=== PATIENT | female | born 1990 | race Caucasian/White ===

== ENCOUNTER 2017-11-11 22:28 | Emergency (ER) | payer OTHER ==
[~2017-11-11] VITALS: Ht 175.3 cm; Wt 140.0 kg
[2017-11-11 22:44] VITALS: BP 185/90; PULSE 97; RESP 18; TEMP 99.2; O2SAT 99
[2017-11-12] MEDS ORDERED: ONDANSETRON HCL 4 MG/2 ML VIAL ONE (00:24)
[2017-11-12 00:29] LABS: AUTOMATED NEUTROPHIL # 5.1 TH/MM3 (1.8-7.7); BASOPHIL # 0.1 TH/MM3 (0-0.2); BASOPHIL % 0.6 % (0.0-2.0); EOSINOPHIL # 0.1 TH/MM3 (0-0.4); EOSINOPHIL % 1.2 % (0.0-4.0); HEMATOCRIT 40.7 % (35.0-46.0); HEMOGLOBIN 13.8 GM/DL (11.6-15.3); LYMPH % 33.5 % (9.0-44.0); MEAN CELL VOLUME 87.6 FL (80.0-100.0); MEAN CORPUSCULAR HEMOGLOBIN 29.6 PG (27.0-34.0); MEAN CORPUSCULAR HGB CONC 33.8 % (32.0-36.0); MEAN PLATELET VOLUME 7.1 FL (7.0-11.0); MONO % 7.9 % (0.0-8.0); MONOCYTE # 0.7 TH/MM3 (0-0.9); NEUT % 56.8 % (16.0-70.0); PLATELET COUNT 309 TH/MM3 (150-450); RED BLOOD COUNT 4.64 MIL/MM3 (4.00-5.30); RED CELL DISTRIBUTION WIDTH 13.4 % (11.6-17.2)
[2017-11-12 00:43] LABS: ALBUMIN 3.8 GM/DL (3.4-5.0); ALT (GPT) 18 U/L (10-53); AST (GOT) 18 U/L (15-37); BICARBONATE 22.4 MEQ/L (21.0-32.0); BLOOD UREA NITROGEN 8 MG/DL (7-18); CHLORIDE 107 MEQ/L (98-107); CREATININE 0.84 MG/DL (0.50-1.00); GLOMERULAR FILTRATION RATE 82 ML/MIN (>89); GLUCOSE,RANDOM 79 MG/DL (74-106); SODIUM (NA) 141 MEQ/L (136-145)
[2017-11-12 00:46] LABS: ALKALINE PHOSPHATASE 98 U/L (45-117); TOTAL BILIRUBIN ADULT 0.8 MG/DL (0.2-1.0); TOTAL PROTEIN 7.6 GM/DL (6.4-8.2)
[2017-11-12] MEDS ORDERED: MORPHINE SULFATE 2 MG/ML SYRINGE IV PUSH ONE (01:00)
[2017-11-12] MEDS ORDERED: ONDANSETRON HCL 4 MG/2 ML VIAL IV PUSH ONE (02:15)
[2017-11-12] MEDS ORDERED: IOHEXOL 350 MG/ML 10 ML VIAL (for RAD DIAG) IVCONTRAST ONE (02:33)
[2017-11-12] MEDS ORDERED: METOCLOPRAMIDE HCL 10 MG/2 ML VIAL IV PUSH ONE (03:15)
--- NOTE | 2017-11-12 03:31 | RADRPT ---
EXAM DATE/TIME: 11/12/2017 02:28 [place] COMPARISON: No previous studies available for comparison. INDICATIONS : Abdominal pain, no bowel movement for 1 week. IV CONTRAST: 100 cc Omnipaque 350 (iohexol) IV ORAL CONTRAST: No oral contrast ingested. RADIATION DOSE: 16.67 CTDIvol (mGy) MEDICAL HISTORY : Irritiable bowel syndrome. SURGICAL HISTORY : Cholecystectomy. ENCOUNTER: Initial ACUITY: 1 week PAIN SCALE: 8/10 LOCATION: Abdomen. TECHNIQUE: Volumetric scanning of the abdomen and pelvis was performed. Using automated exposure control and ad justment of the mA and/or kV according to patient size, radiation dose was kept as low as reasonably achievable to obtain optimal diagnostic quality images. DICOM format image data is available electro nically for review and comparison. FINDINGS: LOWER LUNGS: The visualized lower lungs are clear. LIVER: Homogeneous density without lesion. There is no dilation of the biliary tree. Status post cholecyste ctomy. SPLEEN: Normal size without lesion. PANCREAS: Within normal limits. KIDNEYS: Normal in size and shape. There is no mass, stone or hydronephrosis. ADRENAL GLANDS: Within normal limits. VASCULAR: There is no aortic aneurysm. BOWEL/MESENTERY: The stomach, small bowel, and colon demonstrate no acute abnormality. There is no free intraperitone al air or fluid. ABDOMINAL WALL: Within normal limits. RETROPERITONEUM: There is no lymphadenopathy. BLADDER: No wall thickening or mass. REPRODUCTIVE: Within normal limits. INGUINAL: There is no lymphadenopathy or hernia. MUSCULOSKELETAL: Within normal limits for patient age. CONCLUSION: No acute disease. Doyle Lisa MD on November 12, 2017 at 3:29 Board Certified Radiologist. This report was verified electronically.
[2017-11-12] MEDS ORDERED: SODIUM CHLOR 0.9% 1000 ML INJ 1,000 ML IV ONE (04:00)
[2017-11-12 04:12] LABS: BILIRUBIN, URINE NEG (NEG); BLOOD, URINE NEG (NEG); GLUCOSE,URINE NEG (NEG); KETONE, URINE 10 mg/dL (NEG); MUCUS URINE FEW /lpf (OCC); NITRITE,URINE NEG (NEG); SQUAMOUS EPITHELIAL CELL URINE 2 /hpf (0-5); URINE COLOR LIGHT-YELLOW (YELLW/STRAW); URINE LEUKOCYTE ESTERASE NEG (NEG)
--- NOTE | 2017-11-12 04:44 | PD ---
HPI Chief Complaint: Abdominal Pain Time Seen by Provider: 00:52 Travel History International Travel<30 days: No Contact w/Intl Traveler<30days: No Traveled to known affect area: No History of Present Illness HPI 27-year-old female presents to the emergency department by private transportation for complaint of 1 week of abdominal pain with constipation. Patient states she has had nausea without vomiting. No reported fever or chills. No report of bilious emesis hematemesis or coffee-ground emesis. No report of melena hematochezia. No report of urinary symptoms. Last period was 10/16/17 and denies . Patient has history of gastroparesis. Patient is status post cholecystectomy. Patient states that she was previously followed by mechanical artist but this is been greater than 6 months and recently saw her primary care provider with outpatient prescription for HIDA scan. Patient has not scheduled the procedure due to insurance not authorizing the procedure. Patient denies other concerns or complaints. The patient rates her pain 6/10 intensity. PFSH Past Medical History Narrative Medical Irritable bowel syndrome, gastroparesis, paradoxical vocal cord dysfunction, cholecystectomy; no tobacco use; nursing notes for Diminished Hearing: No Gastrointestinal Disorders: Yes (IBS) Medical other: Yes (parodoxacal voical cord disfuction) Tetanus Vaccination: Unknown Influenza Vaccination: Yes ?: Not LMP: 10/16/2017 Past Surgical History Cholecystectomy: Yes Social History Alcohol Use: No Tobacco Use: No Substance Use: No Allergies-Medications (Allergen,Severity, Reaction): Coded Allergies: ciprofloxacin (Verified Allergy, Severe, 11/11/17) neuological deficits levofloxacin (Verified Allergy, Severe, 11/11/17) NEUROLOGICAL DEFICITS Narrative Medication Bethanechol Review of Systems Except as stated in HPI: all other systems reviewed are Neg General / Constitutional: No: Fever, Chills HENT: No: Congestion Cardiovascular: No: Chest Pain or Discomfort Respiratory: No: Shortness of Breath Gastrointestinal: Positive: Nausea, Abdominal Pain, Constipation, No: Vomiting , Diarrhea Genitourinary: No: Dysuria, Flank Pain Musculoskeletal: No: Myalgias, Arthralgias Neurologic: No: Weakness Psychiatric: No: Anxiety Hematologic/Lymphatic: No: Lymph Node Enlargement Physical Exam Narrative GENERAL: Well-developed well-nourished female no acute distress no respiratory distress SKIN: Warm and dry. HEAD: Normocephalic. EYES: No scleral icterus. No injection or drainage. NECK: Supple, trachea midline. No JVD or lymphadenopathy. CARDIOVASCULAR: Regular rate and rhythm without murmurs, gallops, or rubs. RESPIRATORY: Breath sounds equal bilaterally. No accessory muscle use. GASTROINTESTINAL: Abdomen soft, mildly diffusely tender primarily in the epigastric region without guarding or rebound, nondistended. MUSCULOSKELETAL: No cyanosis, or edema. BACK: Nontender without obvious deformity. No CVA tenderness. Data Data Last Documented VS Vital Signs Date Time Temp Pulse Resp B/P (MAP) Pulse Ox O2 Delivery O2 Flow Rate FiO2 11/11/17 22:44 99.2 97 18 185/90 (121) 99 Orders Orders Complete Blood Count With Diff (11/12/17 00:06) Comprehensive Metabolic Panel (11/12/17 00:06) Lipase (11/12/17 00:06) Urinalysis - C+S If Indicated (11/12/17 00:06) Ed Urine Pregnancytest Poc (11/12/17 00:06) Ondansetron Inj (Zofran Inj) (11/12/17 00:24) Morphine Inj (Morphine Inj) (11/12/17 01:00) Ondansetron Inj (Zofran Inj) (11/12/17 02:15) Ct Abd/Pel W Iv Contrast(Rout) (11/12/17 ) Iohexol 350 Inj (Omnipaque 350 Inj) (11/12/17 02:33) Metoclopramide Inj (Reglan Inj) (11/12/17 03:15) Sodium Chlor 0.9% 1000 Ml Inj (Ns 1000 M (11/12/17 04:00) Labs Laboratory Tests Test 11/12/17 00:10 11/12/17 03:30 White Blood Count 9.0 TH/MM3 Red Blood Count 4.64 MIL/MM3 Hemoglobin 13.8 GM/DL Hematocrit 40.7 % Mean Corpuscular Volume 87.6 FL Mean Corpuscular Hemoglobin 29.6 PG Mean Corpuscular Hemoglobin Concent 33.8 % Red Cell Distribution Width 13.4 % Platelet Count 309 TH/MM3 Mean Platelet Volume 7.1 FL Neutrophils (%) (Auto) 56.8 % Lymphocytes (%) (Auto) 33.5 % Monocytes (%) (Auto) 7.9 % Eosinophils (%) (Auto) 1.2 % Basophils (%) (Auto) 0.6 % Neutrophils # (Auto) 5.1 TH/MM3 Lymphocytes # (Auto) 3.0 TH/MM3 Monocytes # (Auto) 0.7 TH/MM3 Eosinophils # (Auto) 0.1 TH/MM3 Basophils # (Auto) 0.1 TH/MM3 CBC Comment DIFF FINAL Differential Comment Blood Urea Nitrogen 8 MG/DL Creatinine 0.84 MG/DL Random Glucose 79 MG/DL Total Protein 7.6 GM/DL Albumin 3.8 GM/DL Calcium Level 9.0 MG/DL Alkaline Phosphatase 98 U/L Aspartate Amino Transf (AST/SGOT) 18 U/L Alanine Aminotransferase (ALT/SGPT) 18 U/L Total Bilirubin 0.8 MG/DL Sodium Level 141 MEQ/L Potassium Level 3.6 MEQ/L Chloride Level 107 MEQ/L Carbon Dioxide Level 22.4 MEQ/L Anion Gap 12 MEQ/L Estimat Glomerular Filtration Rate 82 ML/MIN Lipase 116 U/L Urine Color LIGHT-YELLOW Urine Turbidity CLEAR Urine pH 6.0 Urine Specific [place] GREATER THAN 1.050 Urine Protein 30 mg/dL Urine Glucose (UA) NEG mg/dL Urine Ketones 10 mg/dL Urine Occult Blood NEG Urine Nitrite NEG Urine Bilirubin NEG Urine Urobilinogen LESS THAN 2.0 MG/DL Urine Leukocyte Esterase NEG Urine RBC 2 /hpf Urine WBC 2 /hpf Urine Squamous Epithelial Cells 2 /hpf Urine Mucus FEW /lpf Microscopic Urinalysis Comment CULT NOT INDICATED MDM Medical Decision Making Medical Screen Exam Complete: Yes Emergency Medical Condition: Yes Medical Record Reviewed: Yes Interpretation(s) POC HCG: negative Last Impressions Abdomen/Pelvis CT 11/12/17 0000 Signed Impressions: Service Date/Time: Sunday, November 12, 2017 02:28 - CONCLUSION: No acute disease. Doyle Lisa MD CBC & BMP Diagram 11/12/17 00:10 Total Protein 7.6, Albumin 3.8, Calcium Level 9.0, Alkaline Phosphatase 98, Aspartate Amino Transf (AST/SGOT) 18, Alanine Aminotransferase (ALT/SGPT) 18, Total Bilirubin 0.8 Vital Signs Date Time Temp Pulse Resp B/P (MAP) Pulse Ox O2 Delivery O2 Flow Rate FiO2 11/11/17 22:44 99.2 97 18 185/90 (121) 99 Differential Diagnosis Abdominal pain, gastroparesis exacerbation, gastritis, peptic ulcer disease, choledocholithiasis, pancreatitis, gastroenteritis, constipation, bowel obstruction, diverticulitis, renal colic, chronic pain Narrative Course IV access obtained specimens collected and sent for resulting Imaging study ordered; patient administered Zofran Patient continues complain of nausea additional Zofran administered along with morphine sulfate Patient returned from CT complaining of nausea Reglan 10 mg IV administered; patient informed of normal CBC is automated differential normal complete metabolic panel and normal CT abdomen and pelvis; patient aware that urinalysis is pending patient states that she thinks something is wrong and she should be admitted to the hospital I discussed with patient her lab findings and her evaluation and exam and there is no indication at this time for further imaging or for admission but we do not have the results of the urinalysis which may be helpful and offered IV fluid replacement. Patient eloped prior to completion of evaluation with urinalysis pending; patient had been offered IV fluid hydration and did not stay in order to receive IV fluids. Diagnosis Primary Impression: Abdominal pain Qualified Codes: R10.10 - Upper abdominal pain, unspecified Additional Impression: Left against medical advice Disposition: 07 AGAINST MEDICAL ADVICE Condition: Stable Yana Sandy MD Nov 12, 2017 04:44
== END 2017-11-12 04:05 | disposition left against medical advice (07) ==
LOC: NEPC 22:28
DX: R10.10 Upper abdominal pain, unspecified (principal); K31.84 Gastroparesis; K58.9 Irritable bowel syndrome, unspecified; Z53.20 Procedure and treatment not carried out because of patient's decision for unspecified reasons
CPT/HCPCS: 74177; 80053; 81001; 83690; 84703; 85025; 96374; 96375; 99285; J2270; J2405; J2765; Q9967